=== PATIENT | male | born 2005 | race Hispanic/Latino ===

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

== ENCOUNTER 2023-04-16 09:35 | Emergency (ER) | payer OTHER, SELFPAY ==
--- NOTE | 2023-04-16 09:39 | ED.URI ---
HPI - URI/Sore Throat General Chief Complaint: Upper Respiratory Infection Stated Complaint: SOB/Sore Throat/Cough Time Seen by Provider: 04/16/23 09:39 Source: patient Mode of arrival: ambulatory Limitations: no limitations History of Present Illness HPI Narrative: Patient is a 17-year-old male who presents with sinus congestion, sinus pressure, sore throat, mild cough and shortness of breath with coughing since yesterday. Patient states this shortness of breath has improved today but the sinus pressure is worse. Patient states he feels like he has drain draining down the back of his throat causing him to cough. Reports productive cough. Has been taking NyQuil and Tylenol cold and flu along with his albuterol inhaler. Patient has a history of asthma but denies history of bronchitis, pneumonia or COVID. Does report seasonal allergies but is not currently taking allergy medicine Related Data Home Medications Medication Instructions Recorded Confirmed albuterol sulfate 90 mcg/actuation 2 puff inhalation PRN PRN 04/16/23 04/16/23 aerosol inhaler Shortness Of Breath Or Wheezing Allergies Allergy/AdvReac Type Severity Reaction Status Date / Time No Known Allergies Allergy Verified 04/16/23 09:39 Review of Systems Review of Systems: All systems reviewed & are unremarkable except as noted in HPI and below Constitutional: Constitutional: Denies body ache(s), Denies chills, Denies fatigue, Denies fever(s), Denies headache(s), Denies malaise and Denies weakness Eyes: Eyes: Denies blurry vision, Denies itchy eyes and Denies loss of vision ENT: Denies otalgia, Denies headache(s), Reports nasal congestion, Reports nasal discharge, Denies sinus pain, Reports sinus pressure and Reports sore throat Cardiovascular: Cardiovascular: Denies chest pain, Denies irregular heart rhythm and Denies dyspnea Respiratory: Respiratory: Reports cough and Denies dyspnea Gastrointestinal: Gastrointestinal: Denies abdominal pain, Denies diarrhea, Denies nausea and Denies vomiting Musculoskeletal: Musculoskeletal: Denies back pain, Denies myalgias and Denies arthralgias Integumentary/Breasts: Skin/Breast: Denies pruritus and Denies rash Neurologic: Denies headache(s), Denies loss of vision and Denies weakness Psychiatric: Psychiatric: Reports no additional psychiatric complaints Endocrine: Endocrine: Denies fatigue Allergic/Immunologic: Allergic/Immunologic: Denies itchy eyes PMFSH Past Medical History Medical History (Updated 04/16/23 @ 09:58 by Analilia Benedict APRN) Asthma Surgical History Surgical History No pertinent past surgical history Social History Social History (Updated 10/01/22 @ 11:13 by Ericka Jon NP) Smoking status: Never smoker Substance use: current Substance use type: marijuana Gender identity (if verbalized by the patient): Male Comments At time of signature, agree with nursing past medical, surgical, social and family history. There is no relevant family history pertinent to the presenting complaint. Exam Const: General: cooperative, healthy appearing, comfortable, no acute distress and well nourished Nutritional Appearance: well nourished Orientation/consciousness: patient oriented x3 Limitations: no limitations HENMT: Head: normal to inspection, normocephalic and atraumatic Ears: hearing grossly normal bilaterally, external ears normal, TM's normal bilaterally, EAC's normal and no periauricular adenopathy Face/Nose/Sinus: Normal external nose present, Abnormal mucous membranes and turbinates present erythematous bilateral and diffuse, normal facial exam, sinuses nontender and face symmetric Face and sinus: normal facial exam, sinuses nontender and face symmetric Mouth: Yes Normal oral and palatal mucosa present, Yes lip normal, Yes tongue normal, Yes Normal salivary glands and ducts present, Yes oropharynx normal and Yes moist mu
[2023-04-16 09:50] VITALS: BP 122/74; PULSE 80; RESP 18; TEMP 37; O2SAT 100
== END 2023-04-16 10:01 | disposition home or self-care (01) ==
PROVIDERS: Emergency Provider Nurse Practitioner Family; PCP Family Medicine
DX: J02.0 Streptococcal pharyngitis (principal); F12.90 Cannabis use, unspecified, uncomplicated; J45.909 Unspecified asthma, uncomplicated
CPT/HCPCS: 87880; 99213; G0463

== ENCOUNTER 2023-05-25 09:57 | Emergency (ER) | payer OTHER, SELFPAY ==
--- NOTE | ~2023-05-25 | XR_ITS ---
XR chest 2V DATE: 05/25/2023 10:30 INDICATION: Episode of inability to capture breath today TECHNIQUE: 2 views COMPARISON: None FINDINGS: Normal heart size. No hilar or mediastinal enlargement. The lungs are hyperinflated but álvaro ar of infiltrate or consolidation. No pleural effusion or pulmonary vascular congestion or pneumothor ax. Included skeletal structures are unremarkable. IMPRESSION: No active cardiopulmonary disease Reviewed, dictated and finalized at location B.
[2023-05-25 10:07] VITALS: BP 111/66; PULSE 69; RESP 16; TEMP 35.8; O2SAT 100
--- NOTE | 2023-05-25 10:10 | ED.URI ---
HPI - URI/Sore Throat General Chief Complaint: Upper Respiratory Infection Stated Complaint: difficulty catching breath Time Seen by Provider: 05/25/23 10:10 Source: patient and RN notes reviewed Mode of arrival: ambulatory Limitations: no limitations History of Present Illness HPI Narrative: 17 y/o male with hx asthma presented for c/o an episode of difficulty catching breath today while at work. States he was cutting wood at work per usual when he felt difficulty catching breath and had some wheezing for about one minute. States he has had similar episode a few months ago, but today's episode lasted longer. Denies chest pain, palpitations, cough, n/v/d/f/c. States he lost his inhaler. Does not wear mask while working. States this may be related to smoking marijuana, last smoked last night. Endorses increased stress as well. MD elicited complaint: cough Related Data Home Medications Medication Instructions Recorded Confirmed albuterol sulfate 90 mcg/actuation 2 puff inhalation PRN PRN 04/16/23 05/25/23 aerosol inhaler Shortness Of Breath Or Wheezing Allergies Allergy/AdvReac Type Severity Reaction Status Date / Time No Known Allergies Allergy Verified 05/25/23 10:02 Review of Systems Review of Systems: CONSTITUTIONAL: Denies malaise, chills, sweats, fever EYES: Denies visual changes, redness, or discharge ENT: Denies rhinorrhea, congestion, sinus pain, otalgia, sore throat CARDIOVASCULAR: Denies chest pain, palpitations, edema RESPIRATORY: Reports episode of difficulty catching breath denies cough, post nasal drainage, dyspnea GASTROINTESTINAL: Denies abdominal pain, nausea, vomiting, diarrhea SKIN: Denies rash or itching MUSCULOSKELETAL: Denies myalgia NEUROLOGIC: Denies headache PMFSH Past Medical History Medical History Asthma Surgical History Surgical History No pertinent past surgical history Social History Social History Smoking status: Never smoker Substance use: current Substance use type: marijuana Gender identity (if verbalized by the patient): Male Exam Narrative: GENERAL: well-appearing, nontoxic no acute distress. HEAD: Normocephalic EYES: PERRLA, conjunctivae clear ENT: Mucous membranes moist. TMs pearly seo with dull light reflex bilaterally; no tragal tenderness. Oropharynx erythematous without lesions or exudate. NECK: Supple. No lymphadenopathy CHEST: Clear to auscultation, breath sounds equal. No wheezing, rhonchi, rales, or stridor. No respiratory distress, speaks in full sentences. HEART: Regular rate and rhythm. No murmur heard. SKIN: Warm, dry, no rash. NEURO: Alert and oriented x3. PSYCH: Normal mood and affect Course Course Emergency Course: Patient is aware of diagnosis, understands and agrees to treatment plan. Anticipatory guidance given. Patient agrees to follow-up as directed and is aware of reasons to seek care at the emergency department. Portions of this record may have been created with voice recognition software Level of Care: Express Care Visit Vital Signs Vital signs: Vital Signs Temperature 96.4 F L 05/25/23 10:07 Pulse Rate 69 05/25/23 10:07 Respiratory Rate 16 05/25/23 10:07 Blood Pressure 111/66 05/25/23 10:07 Pulse Oximetry 100 05/25/23 10:07 Oxygen Delivery Room Air 05/25/23 10:07 Temperature 96.4 F L 05/25/23 10:07 Pulse Rate 69 05/25/23 10:07 Respiratory Rate 16 05/25/23 10:07 Blood Pressure 111/66 05/25/23 10:07 Pulse Oximetry 100 05/25/23 10:07 Oxygen Delivery Room Air 05/25/23 10:07 reviewed MDM - URI/Sore Throat MDM Narrative Medical decision making narrative: Results of chest x-ray reviewed patient. Rx albuterol hfa. Discussed physical exam findings. Advised supportive measures and signs/symptoms
== END 2023-05-25 11:07 | disposition home or self-care (01) ==
PROVIDERS: Emergency Provider Nurse Practitioner Family; PCP Family Medicine
DX: R06.00 Dyspnea, unspecified (principal); J45.909 Unspecified asthma, uncomplicated; F12.90 Cannabis use, unspecified, uncomplicated
CPT/HCPCS: 71046; 99213; G0463

== ENCOUNTER 2023-11-05 16:56 | Emergency (ER) | payer OTHER, SELFPAY ==
[2023-11-05 17:19] VITALS: BP 116/74; PULSE 125; RESP 16; TEMP 37.7; O2SAT 100
--- NOTE | 2023-11-05 17:55 | ED.URI ---
HPI - URI/Sore Throat General Chief Complaint: Upper Respiratory Infection Stated Complaint: dizzy,throwing up,headache,fever Time Seen by Provider: 11/05/23 17:55 Source: patient Mode of arrival: ambulatory Limitations: no limitations History of Present Illness HPI Narrative: 18-year-old male presents with complaint of fatigue, body aches, headache, chills starting this morning. Reports that he vomited twice and had 1 episode of diarrhea around 11:00 a.m.. Has not had any episodes since then. Has been able to keep down water but has not a any solid foods. Denies abdominal pain, requesting work note. All systems reviewed and negative except as noted above. Related Data Allergies Allergy/AdvReac Type Severity Reaction Status Date / Time No Known Allergies Allergy Verified 11/05/23 17:23 Review of Systems Review of Systems: CONSTITUTIONAL: Reports fever, chills, fatigue and sweats. EYES: Denies visual changes, redness, or discharge. ENT: Denies rhinorrhea, congestion, sore throat, or otalgia. CARDIOVASCULAR: Denies chest pain, palpitations, or edema. RESPIRATORY: Denies cough or dyspnea. GASTROINTESTINAL: Denies abdominal pain. Reports nausea, vomiting, or diarrhea. GENITOURINARY: Denies dysuria or hematuria. SKIN: Denies rash or itching. MUSCULOSKELETAL: Denies back pain, joint pain, or myalgia. NEUROLOGIC: Denies headache, numbness, or weakness. PSYCHIATRIC: Denies anxiety or depression. All other systems reviewed are negative, except as documented in HPI. PMFSH Past Medical History Medical History Asthma Surgical History Surgical History No pertinent past surgical history Social History Social History Smoking status: Never smoker Substance use: current Substance use type: marijuana Gender identity (if verbalized by the patient): Male Comments At time of signature, agree with nursing past medical, surgical, social and family history. There is no relevant family history pertinent to the presenting complaint. Exam Narrative: GENERAL: This is a well-nourished, well-developed patient, in no apparent distress. HEAD: normocephalic, atraumatic. EYES: PERRL. Sclera clear/white. Vision is grossly intact. EARS: External ears normal NOSE: External nose normal THROAT: Mucous membranes moist, posterior pharynx clear. NECK: Neck supple, non-tender without lymphadenopathy, masses or thyromegaly. CARDIOVASCULAR: Regular rate and rhythm without murmurs, gallops, or rubs. RESPIRATORY: Clear to auscultation. Breath sounds equal bilaterally. No wheezes, rales, or rhonchi. GASTROINTESTINAL: Abdomen soft, non-tender, nondistended. Bowel sounds are active. No hepato-splenomegaly, or palpable masses. No guarding. SKIN: warm, Dry, intact with no suspicious lesions or rash, good texture and turgor. NEURO: awake, alert, and oriented to person, place and time. There were no obvious focal neurologic abnormalities. EXTREMITIES: No joint tenderness, effusion, or edema noted. Course Course Level of Care: Express Care Visit Vital Signs Vital signs: Vital Signs Temperature 37.7 C H 11/05/23 17:19 Pulse Rate 125 H 11/05/23 17:19 Respiratory Rate 16 11/05/23 17:19 Blood Pressure 116/74 11/05/23 17:19 Pulse Oximetry 100 11/05/23 17:19 Oxygen Delivery Room Air 11/05/23 17:19 Temperature 37.7 C H 11/05/23 17:19 Pulse Rate 125 H 11/05/23 17:19 Respiratory Rate 16 11/05/23 17:19 Blood Pressure 116/74 11/05/23 17:19 Pulse Oximetry 100 11/05/23 17:19 Oxygen Delivery Room Air 11/05/23 17:19 reviewed MDM - URI/Sore Throat MDM Narrative Medical decision making narrative: no abdominal tenderness on exam. Negative COVID and influenza. Patient able to keep down fluids. Patient is aware of diagnosis,
== END 2023-11-05 18:06 | disposition home or self-care (01) ==
PROVIDERS: Emergency Provider Nurse Practitioner Family; PCP Family Medicine
DX: A08.4 Viral intestinal infection, unspecified (principal); J45.909 Unspecified asthma, uncomplicated; F12.90 Cannabis use, unspecified, uncomplicated
CPT/HCPCS: 87426; 87804; 99213; C9803; G0463

== ENCOUNTER 2024-02-29 20:44 | Emergency (ER) | payer OTHER, SELFPAY ==
[2024-02-29 20:46] VITALS: BP 120/81; PULSE 88; RESP 16; TEMP 36.5; O2SAT 99
--- NOTE | 2024-03-01 00:01 | ED.ANIMALBIT ---
HPI - Animal Bite General Chief Complaint: Animal Bite Stated Complaint: dog bite left inner thigh Time Seen by Provider: 02/29/24 22:52 Source: patient Mode of arrival: ambulatory Limitations: no limitations History of Present Illness HPI narrative: This is a 18 year old male that presents to the ER for dog bite sustained tonight. Reports there was a dog chasing some kids on a bike. He went up to the dog to get it away from the kids and the dog bit his leg. He is unsure who owns this dog, but he has seen it around the neighborhood before. Patient is not up to date on his tetanus vaccination. Unsure of dogs vaccination status. Reports bruising and superficial abrasion to the left thigh. Denies decreased ROM or numbness. Related Data Allergies Allergy/AdvReac Type Severity Reaction Status Date / Time No Known Allergies Allergy Verified 02/29/24 22:21 Review of Systems Review of Systems: CONSTITUTIONAL: Denies fever SKIN: Reports laceration MUSCULOSKELETAL: Reports myalgia. NEUROLOGIC: Denies numbness All systems reviewed & are unremarkable except as noted in HPI and below PMFSH Past Medical History Medical History Asthma Surgical History Surgical History No pertinent past surgical history Social History Social History Smoking status: Never smoker Substance use: current Substance use type: marijuana Gender identity (if verbalized by the patient): Male Exam Narrative: GENERAL: Well-appearing, well-nourished, and in no acute distress. HEAD: Normocephalic, atraumatic. EYES: EOMI. EXTREMITIES: Normal range of motion. No edema. Bruising with superficial abrasion to the left thigh anteriorly SKIN: Warm, dry, no rash. NEURO: No focal deficits. Alert and oriented x3. PSYCH: Normal mood and affect Course Course Emergency Course: Patient agrees with plan of care Vital Signs Vital signs: Vital Signs Temperature 97.7 F 02/29/24 20:46 Pulse Rate 88 02/29/24 20:46 Respiratory Rate 16 02/29/24 20:46 Blood Pressure 120/81 02/29/24 20:46 Pulse Oximetry 99 02/29/24 20:46 Oxygen Delivery Room Air 02/29/24 20:46 Temperature 97.7 F 02/29/24 20:46 Pulse Rate 88 02/29/24 20:46 Respiratory Rate 16 02/29/24 20:46 Blood Pressure 120/81 02/29/24 20:46 Pulse Oximetry 99 02/29/24 20:46 Oxygen Delivery Room Air 02/29/24 20:46 MDM - Animal Bite MDM Narrative Medical decision making narrative: Patient presents to the ER after a dog bite sustained tonight. Has an area of bruising with superficial abrasion, does not appear to actually break deeper into the skin. He was updated on his tetanus vaccination and will be started on oral antibiotic. Unsure of the dog's vaccination status, but reports it is a dog he sees around the neighborhood. It does not seem like this was a totally unprovoked attack. He will follow up with animal control, form has been filled out and will be faxed to them. He was given warnings to return to the ER Differential Diagnosis Differential diagnosis: Likely dog bite Critical Care Time Critical Care Time Critical Care Time: No Discharge Plan Discharge Clinical Impression: Dog bite Qualifiers: Encounter type: initial encounter Qualified Code(s): W54.0XXA - Bitten by dog, initial encounter Patient Disposition: Home, Self-Care Condition: Stable Instructions: Antibiotic Form, Animal Bite (ED) Additional Instructions: Return to the emergency department if you experience fever, redness or swelling of your wound, abnormal drainage from your wound, or any other symptoms that are concerning to you. Apply antibiotic ointment daily. Do not soak the wound. Clean with mild soap and water daily. Take oral antibiotic as prescribed Follow-up with primary care doctor and animal c
[2024-03-01] MEDS: AMOXICILLIN/CLAVULANATE K 875-125 MG TAB 1 TABLET PO (00:18)
[2024-03-01] MEDS: TETANUS,DIPHTHERIA,AC PERTUSSIS ADULT (0.5 ML) BOOSTRIX IM (00:18)
== END 2024-03-01 01:26 | disposition home or self-care (01) ==
PROVIDERS: Emergency Provider Physician Assistant; PCP Family Medicine
DX: S71.152A Open bite, left thigh, initial encounter (principal); Z23 Encounter for immunization; J45.909 Unspecified asthma, uncomplicated; W54.0XXA Bitten by dog, initial encounter
CPT/HCPCS: 90471; 90715; 99283; A9270

== ENCOUNTER 2024-05-10 11:53 | Emergency (ER) | payer OTHER, SELFPAY ==
--- NOTE | 2024-05-10 11:57 | ED.CHESTPAIN ---
HPI - Chest Pain General Chief Complaint: Chest Pain Stated Complaint: random chest pains,SOB occassionally Time Seen by Provider: 05/10/24 12:24 Source: patient and RN notes reviewed Mode of arrival: ambulatory Limitations: no limitations History of Present Illness HPI narrative: 18-year-old male with history of asthma presents with concern for random bilateral chest pain. Reports occasional shortness of breath. He reports fatigue, nasal congestion and rhinorrhea for the past 2 days. MD complaint: chest pain Related Data Allergies Allergy/AdvReac Type Severity Reaction Status Date / Time No Known Allergies Allergy Verified 05/10/24 12:01 Review of Systems Review of Systems: CONSTITUTIONAL: Denies malaise, chills, sweats, or fever. EYES: Denies visual changes, redness, or discharge. ENT: Reports rhinorrhea, congestion, morning time sore throat. CARDIOVASCULAR: Reports intermittent chest pain. Denies palpitations, or edema. RESPIRATORY: Reports cough, dyspnea. GASTROINTESTINAL: Denies abdominal pain, nausea, vomiting, diarrhea SKIN: Denies rash or itching. MUSCULOSKELETAL: Denies myalgia. NEUROLOGIC: Reports headache. All systems reviewed & are unremarkable except as noted in HPI and below PMFSH Past Medical History Medical History Asthma Surgical History Surgical History No pertinent past surgical history Social History Social History Smoking status: Never smoker Substance use: current Substance use type: marijuana Gender identity (if verbalized by the patient): Male Comments At time of signature, agree with nursing past medical, surgical, social and family history. There is no relevant family history pertinent to the presenting complaint Exam Narrative: GENERAL: Well-appearing, well-nourished, and in no acute distress. HEAD: Normocephalic EYES: PERRLA, conjunctivae clear ENT: Nares clear, turbinates edematous and erythematous, clear discharge. Mucous membranes moist. TM pearly seo with dull light reflex bilaterally; no tragal tenderness. Oropharynx not erythematous without lesions. Tonsils not enlarged and without exudate, no drooling, no hoarseness, no trismus, uvula midline. NECK: Supple. No lymphadenopathy CHEST: Clear to auscultation, breath sounds equal. No wheezing, rhonchi, rales, or stridor. No respiratory distress, speaks in full sentences. HEART: Regular rate and rhythm. No murmur heard. SKIN: Warm, dry, no rash. NEURO: Alert and oriented x3. PSYCH: Normal mood and affect Course Course Emergency Course: Patient is aware of diagnosis, understands and agrees to treatment plan. Anticipatory guidance given. Patient agrees to follow-up as directed and is aware of reasons to seek care at the emergency department. Portions of this record may have been created with voice recognition software Level of Care: Express Care Visit Vital Signs Vital signs: Reviewed. MDM - Chest Pain Lab Data Attestation: I reviewed the patient's lab results. Critical Care Time Critical Care Time Critical Care Time: No Discharge Plan Discharge Clinical Impression: Upper respiratory infection, History of asthma Patient Disposition: Home, Self-Care Condition: Stable Instructions: Upper Respiratory Infection (ED) Additional Instructions: Your rapid COVID and flu tests are negative Viral illness may last between 7-21 days; antibiotics do not cure viral illness and are NOT recommended at this time. Recommend antihistamine such as Benadryl at night time and Zyrtec or Seema during the day Use inhaler as needed for cough, wheezing, shortness of breath or chest tightness. Also, recommend symptomatic treatment includes: rest, fluids, and increase humidity of the air at home. Recommend Acetaminophen as directed on the bottle
[2024-05-10 12:11] VITALS: BP 114/70; PULSE 74; RESP 16; TEMP 37.2; O2SAT 100
--- NOTE | 2024-05-10 12:52 | ECG_ITS ---
Test Date: 2024-05-10 12:10:39 Measurements Intervals [place] Rate: 74 P: 59 MA: 146 QRS: 72 QRSD: 97 T: 62 QT: 383 QTc: 426 Interpretive Statements SINUS RHYTHM NORMAL ECG No previous ECG available for comparison Electronically Signed On 05-10-2024 13:12:27 CDT by Rogelio Wolf D.O.
[2024-05-10 12:56] LABS: EDINFLUASCREEN Negative; EDINFLUBSCREEN Negative
== END 2024-05-10 12:40 | disposition home or self-care (01) ==
PROVIDERS: Emergency Provider Nurse Practitioner; PCP Nurse Practitioner Family
DX: J06.9 Acute upper respiratory infection, unspecified (principal); J45.909 Unspecified asthma, uncomplicated; Z20.822 Contact with and (suspected) exposure to COVID-19; F12.90 Cannabis use, unspecified, uncomplicated
CPT/HCPCS: 87426; 87804; 93005; 99213; G0463

== ENCOUNTER 2024-05-23 12:41 | Emergency (ER) | payer OTHER, SELFPAY ==
[2024-05-23 12:48] VITALS: BP 111/71; PULSE 70; RESP 16; TEMP 36.9; O2SAT 97
[2024-05-23 13:10] LABS: EDSTREPNEGPOS1 Presumptive Negative
--- NOTE | 2024-05-23 13:49 | ED.URI ---
HPI - URI/Sore Throat General Chief Complaint: Upper Respiratory Infection Stated Complaint: throat hurts, left ear pain Time Seen by Provider: 05/23/24 13:43 Source: patient and RN notes reviewed Mode of arrival: ambulatory Limitations: no limitations History of Present Illness HPI Narrative: Patient presents today complaining of a 2-3 day history of sore throat, left ear pain, headache, postnasal drip. Denies fever, congestion, rhinorrhea, cough. Currently rates his pain 6/10 which increases with swallowing. He has been using tea in Chloraseptic spray without much relief. Related Data Allergies Allergy/AdvReac Type Severity Reaction Status Date / Time No Known Allergies Allergy Verified 05/23/24 12:43 Review of Systems Review of Systems: CONSTITUTIONAL: Denies body aches, fever, chills, or sweats. EYES: Denies visual changes, redness, or discharge. ENT: Denies rhinorrhea, congestion. + sore throat, left ear pain, postnasal drip CARDIOVASCULAR: Denies chest pain, palpitations, or edema. RESPIRATORY: Denies cough or dyspnea. GASTROINTESTINAL: Denies abdominal pain, nausea, vomiting, or diarrhea. GENITOURINARY: Denies dysuria or hematuria. SKIN: Denies rash, itching, or wounds. MUSCULOSKELETAL: Denies back pain, joint pain, or myalgia. NEUROLOGIC: Denies numbness, tingling, or weakness.+ headache PSYCH: Denies depression or anxiety. PMFSH Past Medical History Medical History Asthma Surgical History Surgical History No pertinent past surgical history Social History Social History Smoking status: Never smoker Substance use: current Substance use type: marijuana Gender identity (if verbalized by the patient): Male Comments At time of signature, I have reviewed and agree with nursing past medical, surgical, social and family history unless otherwise noted. Please see nursing chart for further information. There is no relevant family history pertinent to the presenting complaint Exam Narrative: GENERAL: Well-appearing, well-nourished, and in no acute distress. HEAD: Normocephalic, atraumatic. EYES: EOMI. No redness or drainage. Conjunctivae normal. ENT: Mucous membranes pink and moist. Nares clear. No rhinorrhea. TMs normal bilaterally. Throat erythematous without edema or exudate. Moderate amount of postnasal drainage noted. Uvula midline. NECK: Normal AROM. Supple. No lymphadenopathy. CHEST: No respiratory distress. Clear to auscultation. HEART: Regular rate and rhythm. No murmur appreciated. EXTREMITIES: Normal range of motion. No edema. SKIN: Warm, dry, no rash. Capillary refill normal. Normal skin turgor. NEURO: No focal deficits. Alert and oriented x3. Gait steady. PSYCH: Normal affect. No signs of depression or anxiety. Course Course Level of Care: Express Care Visit Vital Signs Vital signs: Vital Signs Temperature 98.5 F 05/23/24 12:48 Pulse Rate 70 05/23/24 12:48 Respiratory Rate 16 05/23/24 12:48 Blood Pressure 111/71 05/23/24 12:48 Pulse Oximetry 97 05/23/24 12:48 Oxygen Delivery Room Air 05/23/24 12:48 Temperature 98.5 F 05/23/24 12:48 Pulse Rate 70 05/23/24 12:48 Respiratory Rate 16 05/23/24 12:48 Blood Pressure 111/71 05/23/24 12:48 Pulse Oximetry 97 05/23/24 12:48 Oxygen Delivery Room Air 05/23/24 12:48 Reviewed MDM - URI/Sore Throat MDM Narrative Medical decision making narrative: Rapid strep negative. Culture pending. Symptoms likely viral in etiology. Discussed [id number] medication use and duration of illness. No prescription medications indicated at this time. Anticipatory guidance given. Differential Diagnosis Differential diagnosis: Likely upper respiratory infection, otitis media, viral infection, pharyngitis and o
== END 2024-05-23 13:54 | disposition home or self-care (01) ==
PROVIDERS: Emergency Provider Nurse Practitioner; PCP Nurse Practitioner Family
DX: J06.9 Acute upper respiratory infection, unspecified (principal); F12.90 Cannabis use, unspecified, uncomplicated; J45.909 Unspecified asthma, uncomplicated
CPT/HCPCS: 87081; 87880; 99213; G0463